=== PATIENT | female | born 1990 | race Hispanic/Latino ===

== ENCOUNTER 2017-12-08 09:59 | Emergency (ER) | payer OTHER ==
[~2017-12-08] VITALS: Ht 152.4 cm; Wt 45.0 kg
[~2017-12-08 09:59] MED LIST: AUGMENTIN875 MG OR; IBUPROFEN600 MG PO; KEFLEX500 MG PO; LORTAB 5 OR; NO HOME MEDS; NORCO1 TA2 PO; PERI-COLACE1 TAB PO; PRENATA3 PO; PROCARDIA10 MG PO
[2017-12-08 10:46] LABS: HEMATOCRIT 36.4 % (37.0-47.0); HEMOGLOBIN 13.1 g/dl (12.0-16.0); IMMATURE GRANULOCYTES 0.3 % (0.0-1.0); MEAN CELL VOLUME 87.5 fL CALC (80.0-100.0); MEAN CORPUSCULAR HGB 31.5 pG CALC (26.0-32.0); NEUT# 7.15 thou/uL (2.00-7.15); RED BLOOD COUNT 4.16 mill/uL (4.20-5.60); RED CELL DISTRI WIDTH 11.9 % (11.5-15.5)
[2017-12-08 10:50] LABS: URINE BILIRUBIN - DIPSTICK NEGATIVE (NEGATIVE); URINE BLOOD DIPSTICK LARGE (NEGATIVE); URINE CLARITY CLOUDY; URINE COLOR YELLOW; URINE GLUCOSE - DIPSTICK NEGATIVE (NEGATIVE); URINE KETONE NEGATIVE (NEGATIVE); URINE LEUK ESTERASE NEGATIVE (NEGATIVE); URINE NITRITE - DIPSTICK POSITIVE (Negative); URINE PH 5.5 (4.5-8.0); URINE PROTEIN - DIPSTICK TRACE mg/dL (NEG-TRACE); URINE SPECIFIC GRAVITY >=1.030; URINE UROBILINOGEN - DIPSTICK 0.2 E.U./dL (0.2)
[2017-12-08 10:51] LABS: URINE BACTERIA MANY hpf; URINE EPITHELIAL CELLS MODERATE EPI/hpf (0-FEW); URINE RBC 25-50 RBC/hpf (0-5)
[2017-12-08 11:07] LABS: AMYLASE 40 u/l (30-110); BILIRUBIN, TOTAL 0.4 mg/dL (0.0-1.4); BUN 13 mg/dL (7-17); BUN/CREATININE RATIO 24 (12-20 (CALC)); CARBON DIOXIDE 21 mmol/l (22-30); CHLORIDE 107 mmol/l (95-108); CREATININE 0.5 mg/dL (0.5-1.0); GFR > 60 ML/MIN (>=60 (CALC)); GFR FOR AFR.AMER. > 60 ML/MIN (>=60 (CALC)); LIPASE 51 u/l (23-300); SGOT/AST 18 u/l (14-36); SGPT/ALT 25 u/l (9-52); TOTAL PROTEIN 7.6 g/dL (6.3-8.2)
[2017-12-08 11:08] LABS: ALBUMIN 4.2 g/dL (3.2-5.0); ALKALINE PHOSPHATASE 74 u/l (38-126); ANION GAP 18 (6-22 (CALC)); POTASSIUM 3.4 mmol/l (3.5-5.1); SODIUM 143 mmol/l (137-146)
[2017-12-08] MEDS ORDERED: TAMSULOSIN0.4 MG PO (13:03)
[2017-12-08] MEDS ORDERED: LORTAB 5/3255 MG PO (13:03)
[2017-12-08 13:20] VITALS: BP 96/50
== END 2017-12-08 13:20 | disposition home or self-care (01) | DRG 694 ==
LOC: ED 09:59
PROVIDERS: Family Medicine
DX: N20.2 Calculus of kidney with calculus of ureter (principal); B96.20 Unspecified Escherichia coli [E. coli] as the cause of diseases classified elsewhere; R10.12 Left upper quadrant pain; R11.2 Nausea with vomiting, unspecified; R50.9 Fever, unspecified; R10.32 Left lower quadrant pain; K59.00 Constipation, unspecified

== ENCOUNTER 2017-12-08 21:46 | Inpatient (IN) | payer OTHER ==
[~2017-12-08] VITALS: Ht 152.4 cm; Wt 55.2 kg
[~2017-12-08 21:46] MED LIST changes: +LORTAB 5/3255 MG PO; +TAMSULOSIN0.4 MG PO
--- NOTE | 2017-12-08 22:21 | NUR ---
DR GARCIA AT BEDSIDE.
[2017-12-08 22:53] LABS: HEMATOCRIT 38.2 % (37.0-47.0); HEMOGLOBIN 13.1 g/dl (12.0-16.0); IMMATURE GRANULOCYTES 0.7 % (0.0-1.0); MEAN CELL VOLUME 90.5 fL CALC (80.0-100.0); MEAN CORPUSCULAR HGB CONC 34.3 g/L CALC (32.0-36.0); NEUT# 19.27 thou/uL (2.00-7.15); RED BLOOD COUNT 4.22 mill/uL (4.20-5.60); RED CELL DISTRI WIDTH 12.3 % (11.5-15.5)
[2017-12-08 23:10] LABS: ALBUMIN 4.5 g/dL (3.2-5.0); ALKALINE PHOSPHATASE 69 u/l (38-126); ANION GAP 24 (6-22 (CALC)); BILIRUBIN, TOTAL 0.8 mg/dL (0.0-1.4); BUN 13 mg/dL (7-17); BUN/CREATININE RATIO 16 (12-20 (CALC)); CARBON DIOXIDE 17 mmol/l (22-30); CHLORIDE 105 mmol/l (95-108); CREATININE 0.8 mg/dL (0.5-1.0); GFR > 60 ML/MIN (>=60 (CALC)); GFR FOR AFR.AMER. > 60 ML/MIN (>=60 (CALC)); POTASSIUM 3.8 mmol/l (3.5-5.1); SGOT/AST 27 u/l (14-36); SGPT/ALT 23 u/l (9-52); SODIUM 142 mmol/l (137-146); TOTAL PROTEIN 8.1 g/dL (6.3-8.2)
--- NOTE | 2017-12-08 23:50 | NUR ---
PT RELATED PAIN IMPROVED AFTER PAIN MEDS. SLIGHT NAUSEA.
[2017-12-09] VITALS (27 sets, daily range): BP systolic 74–115; BP diastolic 46–74
--- NOTE | 2017-12-09 00:30 | NUR ---
PT WITH EYES CLOSED. CALL ROJAS IN REACH.
--- NOTE | 2017-12-09 01:22 | NUR ---
PT RELATED SHE IS UNABLE TO PROVIDE URINE.
--- NOTE | 2017-12-09 01:40 | NUR ---
VERBAL TO STRAIGHT CATH FOR URINE BY DR GARCIA.. ACCOMP BY CLARISSA BRIGHT.
[2017-12-09 01:50] LABS: URINE BILIRUBIN - DIPSTICK NEGATIVE (NEGATIVE); URINE BLOOD DIPSTICK NEGATIVE (NEGATIVE); URINE COLOR YELLOW; URINE GLUCOSE - DIPSTICK NEGATIVE (NEGATIVE); URINE KETONE NEGATIVE (NEGATIVE); URINE LEUK ESTERASE NEGATIVE (NEGATIVE); URINE NITRITE - DIPSTICK NEGATIVE (Negative); URINE PH 5.5 (4.5-8.0); URINE PROTEIN - DIPSTICK NEGATIVE (NEG-TRACE); URINE UROBILINOGEN - DIPSTICK 0.2 E.U./dL (0.2)
[2017-12-09 01:51] LABS: URINE CLARITY CLEAR
--- NOTE | 2017-12-09 02:05 | NUR ---
PT C/O 03/23 PAIN. FOUND PT UNDER BLANKET WITH ROOM TEMP ON HI. REMOVED BLANKET, PT WITH SHEET ON, PROVIDED EDUCATION.
--- NOTE | 2017-12-09 02:21 | NUR ---
PT TO CT.
--- NOTE | 2017-12-09 02:34 | NUR ---
PT RETURNED FROM CT.
--- NOTE | 2017-12-09 02:45 | NUR ---
PT PLACED IN TRENDELENBERG FOR B/P.
--- NOTE | 2017-12-09 03:41 | NUR ---
PT REQUESTED BED TOBAR.
--- NOTE | 2017-12-09 03:48 | NUR ---
PT UNABLE TO VOID ON BEDPAN.
--- NOTE | 2017-12-09 03:49 | NUR ---
PT STATED SHE LAST ATE AT 0500 ON THURSDAY, LAST PO SIP OF WATER WITH TYLENOL AT 2300 12/08/17
--- NOTE | 2017-12-09 04:16 | NUR ---
PT TO OR.
--- NOTE | 2017-12-09 04:55 | NUR ---
REPORT TO [facility] ICU
--- NOTE | 2017-12-09 06:30 | NUR ---
PT TO ICU BED 2 VIA STRETCHER FROM OR. PT IS [place] SPEAKING ONLY. PT ORIENTED TO ROOM AND CALL LIGHT SYSTEM. WILL CONTINUE TO MONITOR
--- NOTE | 2017-12-09 07:12 | NUR ---
female pt resting in bed with eyes closed; arousable to light tactile stimulation/loud speech; assessment completed at this time; pt speaks some [place]; alert and oriented but drowsy; admits to pain to luq rating 6/10; no n/v noted; will medicate; resp even and unlabored; lungs clear; skin color wnl; 8L oxymask intact; o2 sat 91%; hr reg; strong pulses; no edema noted; st on monitor; abd soft with bs present; no bm noted per creative services writer; diana to gravity draining clear dk yellow urine; #20 rw patent with ns bolus infusing; #22 in lh saline locked; no redness or edema noted at site; pt noted hypotensive/ fluid bolus infusing; plan of care/ am meds explained; call light within reach; will continue to monitor
--- NOTE | 2017-12-09 08:01 | NUR ---
awake; visitor at bedside; no distress noted; st on monitor; o2 mask intact; remains hypotensive; call light within reach; will continue to monitor
--- NOTE | 2017-12-09 09:35 | NUR ---
Dr Escamilla at bedside to assess pt and discuss plan of care
--- NOTE | 2017-12-09 10:14 | NUR ---
pt resting with eyes closed; easily aroused; offers no complaints; diana to gravity; sr on monitor; iv patent; fluids infusing without complication; no redness or edema noted at site; o2 8L via face mask; call light within reach; will continue to monitor
--- NOTE | 2017-12-09 12:05 | NUR ---
awake; assisted to bsc as per request; lg loose brown bm noted; pericare per pt; diana to gravity; iv intact and patent; no redness or edema noted at site; o2 at 8L via facemask; st on monitor; call light within reach; will continue to monitor
--- NOTE | 2017-12-09 14:15 | NUR ---
awake in bed; offers complaints of pain to luq/abd; medicated as per orders; iv patent; no redness or edema noted at site; sr on monitor; diana to gravity; call light within reach; will continue to monitor
--- NOTE | 2017-12-09 16:18 | NUR ---
awake conversing on cell phone; no distress noted; resp even and unlabored; o2 per facemask; iv intact and patent; fluids infusing without complication; no redness or edema noted at site; sr on monitor; call light within reach; will continue to monitor
--- NOTE | 2017-12-09 18:01 | NUR ---
awake in bed; no distress noted; pt offers no complaints; iv patent; no redness or edema noted at site; sr on monitor; family at bedside; diana to gravity; o2 per facemask; bed in lowest position; call light within reach;
--- NOTE | 2017-12-09 19:00 | NUR ---
PT SITING UP IN BED WATCHING TV. PT IS ALERT AND ORIENTED X3. PERRLA. RESP ARE VERY SHALLOW AND FAST. INSTRUCTIONS GIVEN FOR NICE SLOW DEEP BREATHING. CONSULTED WITH RT. RT GAVE DEEP BREATHING TECHNIQUES AND PLACED PT ON O2 4L NC HI FGLOW. PT O2 SAT REMAINS ABOVE 94%. LUNGS ARE CLEAR THROUGHOUT. HR REGULAR. SR ON MONITOR. PULSES PALPABLE THROUGHOUT. NO EDEMA NOTED. BS ACTIVE. DIAMOND DRAINING ORANGE COLORED URINE. PT IS ON PYRIDIUM. PT ASSISTED TO BATHROOM FOR BM. AND THEN WAS ASSISTED BACK TO BED. SCDS IN PLACE. #20 RW. NS @200CC/HR. #22 LH SALINE LOCKED. NO REDNESS OR EDEMA NOTED AT EITHER SITE. CALL LIGHT WITHIN REACH WILL CONTINUE TO MONITOR
--- NOTE | 2017-12-09 21:00 | NUR ---
PT ASSISTED TOBATHROOM FOR BM AND ASSISTED BACK TOP BED
--- NOTE | 2017-12-09 22:00 | NUR ---
PT ASSISTED TO BATHROOM FOR BM AND ASSISTED BACK TO BED.
--- NOTE | 2017-12-09 23:00 | NUR ---
PT ASSISTED TO BATHROOM FOR BM ANDC ASSISTED BACK TO BED. WILL CONTINUE TO MONITOR
[2017-12-10] VITALS (14 sets, daily range): BP systolic 100–119; BP diastolic 56–86
--- NOTE | 2017-12-10 00:10 | NUR ---
PT STATES THAT SHE IS SHORT OF BREATH. PT REMAINS ON O2 4L HI FLOW NASAL CANNULA. NOTIFIED RESPIRATORY FOR EVALUATION. WADDNER ALSO HERE TO TRANSLATE AND REASSURE PATIENT
--- NOTE | 2017-12-10 00:16 | NUR ---
PT DEMANDED TO BE PLACED BY ON O2 MASK STATING THAT THE NASAL CANNULA WAS STOPPING HER FROM BREATHING. RT PLACED PT BACK ON MASK.
--- NOTE | 2017-12-10 00:31 | NUR ---
ASSISTED PT TO BSC FOR BM.
--- NOTE | 2017-12-10 00:38 | NUR ---
PT ASSISTED BACK TO BED. SMALL BM NOTED.
--- NOTE | 2017-12-10 02:00 | NUR ---
PT RESTING IN BED WITH EYES CLOSED. RESP ARE EVEN AND UNLABORED ON MASK AT 8L. NO DISTRESS NOTED. WILL CONTINUE TO AUSTINIR
--- NOTE | 2017-12-10 03:20 | NUR ---
ASSISTED PT TO BSC FOR BM.
--- NOTE | 2017-12-10 03:34 | NUR ---
PT AWSSISTED BACK TO BED. SCANT BM NOTED
--- NOTE | 2017-12-10 04:00 | NUR ---
PT RESTING IN BED WITH EYES CLOSED. RESP ARE EVEN AND UNLABORED. NO DISTRESS NOTED. REMAINS ON O2 6L. WILL CONTINUE TO MONITOR
--- NOTE | 2017-12-10 04:32 | NUR ---
LAB INTO DRAW AM LABS
[2017-12-10 05:36] LABS: MEAN CELL VOLUME 91.9 fL CALC (80.0-100.0); MEAN CORPUSCULAR HGB 31.9 pG CALC (26.0-32.0); MEAN CORPUSCULAR HGB CONC 34.7 g/L CALC (32.0-36.0); RED BLOOD COUNT 3.45 mill/uL (4.20-5.60); RED CELL DISTRI WIDTH 13.5 % (11.5-15.5)
[2017-12-10 05:44] LABS: ANION GAP 15 (6-22 (CALC)); BUN 9 mg/dL (7-17); BUN/CREATININE RATIO 13 (12-20 (CALC)); CARBON DIOXIDE 18 mmol/l (22-30); CHLORIDE 117 mmol/l (95-108); CREATININE 0.6 mg/dL (0.5-1.0); GFR > 60 ML/MIN (>=60 (CALC)); GFR FOR AFR.AMER. > 60 ML/MIN (>=60 (CALC)); POTASSIUM 3.1 mmol/l (3.5-5.1); SODIUM 147 mmol/l (137-146)
[2017-12-10 05:56] LABS: HEMATOCRIT 31.7 % (37.0-47.0)
--- NOTE | 2017-12-10 06:05 | NUR ---
ASSISTED PT TO BSC FOR BM
--- NOTE | 2017-12-10 06:18 | NUR ---
ASSISTED PT BACK TO BED. SMALL BM NOTED. WILL CONTINUE TO MONITOR
--- NOTE | 2017-12-10 07:10 | NUR ---
pt noted sleeping; no distress noted; easily arousable to speech; assessment completed at this time; pt alert and oriented; denies pain; no n/v noted; resp even and unlabored while asleep; when awakened, pt noted with fast shallow breathing; deep breathing techniques explained; lungs clear; skin color wnl; o2 per facemask at 8L/o2 sat 100%; pt converted to 4l hi lex NC; o2 sat remains at 97%; dry upper leather sorter cough noted; IS to be provided; hr reg; strong pulses; no edema noted; bilat scd's intact; abd soft with bs present; no bm noted per board writer; diana to gravity draining clear yellow urine; cath wong intact; #22 flushed and patent to lh; #20 in rw patent with ivf infusing without complication; no redness or edema noted at site; plan of care/am meds explained; call light within reach; will continue to monitor
--- NOTE | 2017-12-10 08:02 | NUR ---
awake in bed; offers no complaints; increase activity encouraged; scd's removed and archana hose placed; iv patent; am meds given; o2 per nc at 4L hi lex; o2 sat remain in upper 90S; sr on monitor; call light within reach; will continue to monitor
--- NOTE | 2017-12-10 09:11 | NUR ---
BLOOD CULTURE POSITIVE BLOOD CULTURE CALLED TO AT 0745AM GRAM (-) ALICIA PATIENT IS ON ZOSYN
--- NOTE | 2017-12-10 10:00 | NUR ---
up to recliner; no distress noted; o2 per nc; diana to gravity; visitor at bedside; iv patent; pt offers no complaints; will continue to monitor
--- NOTE | 2017-12-10 10:58 | NUR ---
pt awake in bed; visitor at bedside; registration called unit with concerns for pt/language barrier; this verse writer and Georgie MS UC in to assess pt; pt noted with complaints of lower abd pain; pain meds explained; diana to gravity with no kinks noted; abd appears slightly distended; pt and visitor updated in plan of care/ meds; call light within reach;
--- NOTE | 2017-12-10 11:30 | NUR ---
Dr Escamilla at bedside to assess and discuss plan of care; Ayden Maldonado at bedside to interpret; pt with complaints of abd pain moreso to ruq/rlq; abd noted slightly distended; bladder scanned for 261ml; no obstruction noted to catheter; diana care at this time; iv patent; no redness or edema noted at site; sr on monitor; o2 per nc at 2L; CT to bed ordered; all questions/ concerns answered with hadoop consultant; MD aware of bladder scan results; will continue to monitor
--- NOTE | 2017-12-10 12:03 | NUR ---
pt awake in bed; vistor at bedside; tearful; admits to pain; iv patent; no redness or edema noted at site; gastrographin administered in apple juice as per protocol; diana to gravity; o2 per nc/ titrated to 2L; o2 sat 98%; sr on monitor; call light within reach; will continue to monitor
--- NOTE | 2017-12-10 14:12 | NUR ---
awake; visitor at bedside; pt up to recliner; no distress noted; admits to pain relief 10/24; diana to gravity; iv patent; sr on monitor; o2 per nc at 2l; call light within reach; will continue to monitor
--- NOTE | 2017-12-10 15:00 | NUR ---
pt transported to ct scan via in stable condition; speech writer remains with pt [id number]- returned to unit in stable condition; linen changed; bath offered; will continue to monitor
--- NOTE | 2017-12-10 15:59 | NUR ---
awake in recliner; no distress noted; pt offers no complaints; denies pain; sr on monitor; ra; o2 sat 96%; no resp distress noted; diana to gravity; call light within reach; will continue to monitor
--- NOTE | 2017-12-10 17:51 | NUR ---
resting in bed with eyes closed; no distress noted; easily arousable; denies pain/needs; iv patent; no redness or edema noted at site; sr on monitor; diana to gravity; o2 sat 92% RA; deep breathing, coughing, IS encouraged; bed in lowest position; call light within reach
--- NOTE | 2017-12-10 18:18 | NUR ---
assist to bsc; sob with exertion noted; o2 reapplied at 2L for o2 sat of 88%
--- NOTE | 2017-12-10 18:50 | NUR ---
REPORT FROM Anila DENISE RN. ASSUMED PT. CARE.
--- NOTE | 2017-12-10 19:07 | NUR ---
DIAMOND CATHETER REMOVED BY Anila DENISE RN AT THIS TIME. APPROX 500 CC URINE EMPTIED AT THIS TIME. LIQUID BROWN BM ALSO NOTED.
--- NOTE | 2017-12-10 20:25 | NUR ---
PT. EDUCATED ON PENDING BLOOD CULTURE AND ALL QUESTIONS ANSWERED. ASSISTED BY Matilde MERCER WITH INTERPRETATION. PT. DENIES COMPLAINTS OF PAIN AT THIS TIME. REPOSITIONED FOR COMFORT AND WARM BLANKET PROVIDED.
--- NOTE | 2017-12-10 20:55 | NUR ---
PT. ASSISTED TO BEDSIDE COMMODE FOR BM. WILL SEND STOOL FOR CULTURE ANALYSIS.
--- NOTE | 2017-12-10 22:17 | NUR ---
PT. ASSISTED TO BEDSIDE COMMODE. URINE AND STOOL OUT AT THIS TIME. CALL LIGHT REMAINS WITHIN REACH. WILL CONTINUE TO MONITOR. CONTINUES TO DENY PAIN.
--- NOTE | 2017-12-10 23:45 | NUR ---
PT. TEMP NOW 99.1. IV FLUIDS CONTINUE TO INFUSE AT 20CC/HR. ASSISTED TO BEDSIDE COMMODE. PT. TOLERATED WELL. HR AND BP STABLE. SPO2 STABLE ON 2L NC. CALL LIGHT REMAINS WITHIN REACH.
[2017-12-11] VITALS (12 sets, daily range): BP systolic 97–133; BP diastolic 55–79
--- NOTE | 2017-12-11 01:26 | NUR ---
PT. RESTING IN BED WITH EYES CLOSED. RESPS REMAIN EVEN AND UNLABORED. SKIN WARM AND DRY. CALL LIGHT REMAINS WITHIN REACH. IV FLUIDS CONTINUE TO INFUSE ORDERED.
--- NOTE | 2017-12-11 02:32 | NUR ---
PT. AWAKE, ALERT, ORIENTED X 3. SKIN WARM AND DRY. ELIE. AMBULATORY FROM BED TO BEDSIDE COMMODE. RESPS REMAINS EVEN AND UNLABORED. VSS. DENIES PAIN. CALL LIGHT PLACED BACK WITHIN REACH. IV FLUIDS CONTINUE TO INFUSE ORDERED.
[2017-12-11 03:17] LABS: C. DIFFICILE TOXIN A&B NEGATIVE (NEGATIVE)
--- NOTE | 2017-12-11 04:05 | NUR ---
LAB AT BEDSIDE AT THIS TIME TO DRAW PT. PT. REMAINS EASILY AROUSABLE TO LIGHT VERBAL STIMULI. REMAINS AFEBRILE. IV FLUIDS CONTINUE TO INFUSE WITHOUT SX OF INFILTRATION OR EXTRAVASATION.
--- NOTE | 2017-12-11 04:28 | NUR ---
PT. ASSISTED TO BSC. SMALL LOOSE/LIQUID BM NOTED AT THIS TIME. APPROX 150 CC CLEAR URINE OUT AT THIS TIME. WILL CONTINUE TO MONITOR. PT. MEDICATED FOR REPORTED 5/10 PAIN. WILL CONTINUE TO MONITOR.
--- NOTE | 2017-12-11 05:56 | NUR ---
PT. RESTING IN BED WITH EYES CLOSED. VOICES NO COMPLAINTS OR NEEDS. IV ZOSYN INFUSING WITHOUT SX OF INFILTRATION OR EXTRAVASATION. MEDICATED PER PHYSICIAN ORDERS. VSS. CALL LIGHT REMAINS WITHIN REACH. WILL CONTINUE TO MONITOR.
--- NOTE | 2017-12-11 07:20 | NUR ---
PT RESTING IN BED, ALERT AND OREINTED, AFEBRILE, TEMP 98.4 TYMPANICALLY, BP STABLE AND TELE READING SR RATE IN THE 70'S, AM ASSESSMENT COMPLETED SEE INTERVENTIONS, SKIN WARM AD N DRY SOME GENERALIZED EDEMA NOTED TO EXTREMETIES ESPECIALLY HANDS, IV ACCESS IN PLACE IN RW WITH IVF INFUSING PRESCRIBED, BILATERAL MARCIAL HOSE IN PLACE, OFFERS NO COMPLAINTS OF PAIN AT THIS TIME, SKIN WARM DRY AND INTACT, LUNGS CLEAR; DIMINSHED IN BASES, O2 ON AT 2L VIA NC, NO SOB OR DISTRESS NOTED, ABD SOFT AND BS ACTIVE, PT HAS HAD LOOSE STOOLS PER REPORT, NONE NOTED BY THIS NURSE, CALL ROJAS WITHIN REACH, SAFETY MEASURES REINFORCED, WILL CONTINUE TO MONITOR.
[2017-12-11 08:19] LABS: HEMATOCRIT 29.1 % (37.0-47.0); HEMOGLOBIN 10.3 g/dl (12.0-16.0); MEAN CELL VOLUME 88.4 fL CALC (80.0-100.0); MEAN CORPUSCULAR HGB 31.3 pG CALC (26.0-32.0); MEAN CORPUSCULAR HGB CONC 35.4 g/L CALC (32.0-36.0); RED BLOOD COUNT 3.29 mill/uL (4.20-5.60); RED CELL DISTRI WIDTH 13.2 % (11.5-15.5)
[2017-12-11 08:28] LABS: ANION GAP 12 (6-22 (CALC)); BUN 7 mg/dL (7-17); BUN/CREATININE RATIO 14 (12-20 (CALC)); CARBON DIOXIDE 21 mmol/l (22-30); CHLORIDE 113 mmol/l (95-108); CREATININE 0.5 mg/dL (0.5-1.0); GFR > 60 ML/MIN (>=60 (CALC)); GFR FOR AFR.AMER. > 60 ML/MIN (>=60 (CALC)); MAGNESIUM 1.5 mg/dL (1.6-2.3); POTASSIUM 2.9 mmol/l (3.5-5.1); SODIUM 143 mmol/l (137-146)
--- NOTE | 2017-12-11 08:40 | NUR ---
TOLERATED AM MEAL W/O INCIDENT, AND TAKES PO MEDICATIONS WELL, VISITOR AT BEDSIDE, INQUIRING (PER PT REQUEST) ABOUT POTENTIAL DISCHARGE, EDUCATED REGARDING D/C PROCESS, VERBALIZES UNDERSTANDING, CALL ROJAS WITH IN REACH, IVF CONTINUE AT PRESCRIBED RATE, WILL CONTINUE TO MONITOR.
--- NOTE | 2017-12-11 09:47 | NUR ---
PT RESTING, DOZES INTERMITTENLY, OFFERS NO NEW COMPLAINTS, VISITOR REMAINS AT BEDSIDE
--- NOTE | 2017-12-11 10:03 | NUR ---
O2 OFF AT THIS TIME, WILL MONITOR TOLERANCE, VISITORS REMAIN AT BEDSIDE, WILL CONTINUE TO MONITOR.
--- NOTE | 2017-12-11 10:41 | NUR ---
PT OOB TO BSC, CONTINENTN OF URINE AND STOOL, LOOSE STOOLS CONTINUE, PT PROVIDES OWN CHELSEY CARE; INTO SEE PATIENT; PLAN OF CARE DISCUSSED INCLUDING MAG AND POTASSIUM REPLACEMENT IV WITH REPEAT CHEM LATER TODAY, PT ALSO AWARE OF NEED FOR ORTHOSTATIC BP'S, WILL CONTINUE TO MONITOR., VISITORS REMAIN AT BEDSIDE
--- NOTE | 2017-12-11 10:56 | NUR ---
TO RADIOLOGY VIA WHEELCHAIR FOR CHEST XRAY ORDERED
--- NOTE | 2017-12-11 11:35 | NUR ---
SET UP ASSIST PROVIDED FOR AFTERNOON MEAL, JES WARE REACH, IVF;POTASSIUM;MAGNESIUM, INFUSING W/O INCIDENT.
--- NOTE | 2017-12-11 11:47 | NUR ---
ORTHOSTATIC BP COMPLETED LYING 104/65 HR 86 [id number] HR 82 [id number] HR 88 OOB TO BSC, CALL ROJAS WITHIN REACH
--- NOTE | 2017-12-11 12:13 | NUR ---
MEDICATED FOR COMPLAINTS OF NAUSEA, NO EMESIS, SITTING UP ON EDGE OF BED, CALL ROJAS WITHIN REACH
--- NOTE | 2017-12-11 12:43 | NUR ---
PT TEMP 99.6 WILL MEDICATE, PT OOB AND AMBULATED WITH PORTABLE O2 AT 2L, TOLERATED WITH SOME MILD DYSPNEA, AND BELCHING NOTED DURING AMBULATION, AMBULATED APPROX 300 FEET, INCENTIVE SPIROMETER USAGE WINTESSED ONCE BACK SITTING ON EDGE OF BED, WITH POOR EFFORT NOTED 500ML MAX INSPIRATORY VOLUME NOTED WITH 10 REPS COMPLETED, PT EDUCATED TO INCREASE USAGE FREQUENCY AND ATTEMPT TO IMPROVE INSPIRATORY VOLUME, WILL REINFORCE INFORMATION PRN, CALL ROJAS WITHIN REACH
--- NOTE | 2017-12-11 13:45 | NUR ---
pt dozing, o2 remains on 2L via NC, call goins within reach, IVF continue at KVO, offers no new complaints,
--- NOTE | 2017-12-11 15:00 | NUR ---
medictaed with TOradol earlier as ordered, temp was 99.5 post tylenol 100.5 medicated with Toradol as ordered, OOB to BSC at this time with min assist, Potassium infusion complete and will re eval lab wt 1600per verbal order
--- NOTE | 2017-12-11 15:49 | NUR ---
PHLEBOTOMY AT BEDSIDE FOR LAB WORK ORDERED, PT TOLERATED W/O INCIDENT, CALL ROJAS WITHIN REACH, WILL CONTINUE TO MONITOR.
[2017-12-11 16:20] LABS: ANION GAP 14 (6-22 (CALC)); BUN 6 mg/dL (7-17); BUN/CREATININE RATIO 14 (12-20 (CALC)); CARBON DIOXIDE 21 mmol/l (22-30); CHLORIDE 110 mmol/l (95-108); CREATININE 0.5 mg/dL (0.5-1.0); GFR > 60 ML/MIN (>=60 (CALC)); GFR FOR AFR.AMER. > 60 ML/MIN (>=60 (CALC)); POTASSIUM 2.9 mmol/l (3.5-5.1); SODIUM 142 mmol/l (137-146)
[2017-12-11 16:26] LABS: MAGNESIUM 1.9 mg/dL (1.6-2.3)
--- NOTE | 2017-12-11 17:13 | NUR ---
PT OOB TO BSC, CONTINENT OF MODERATE AMOUNT URINE AND SMALL BM, PROVIEDS OWN CHELSEY CARE AND BACK TO BED, SITTING UP ON EDGE OF BED AWAITING PM MEAL, TEMP 983.5 TYMPANICALLY, WEAK HAND BRIM IRONER COUGH NOTED, CALL ROJAS WITHIN REACH.
--- NOTE | 2017-12-11 17:22 | NUR ---
AWARE OF POTASSIUM LEVEL NEW ORDERS REC'D.
--- NOTE | 2017-12-11 18:12 | NUR ---
PT TOOK PO POTASSIUM W/O INCIDENT, IV ABT INFUSING, WILL START K RIDER WHEN ABT COMPLETE, CALL ROJAS WITHIN REACH
--- NOTE | 2017-12-11 18:45 | NUR ---
REPORT FROM DEANGELO CANO. ASSUMED PT. CARE.
--- NOTE | 2017-12-11 19:30 | NUR ---
PT. FOUND AWAKE, ALERT, ORIENTED X 3. PT. UPDATED ON PLAN OF CARE AND NEW DIAGNOSES OF BLOOD STREAM INFECTION AND PNEUMONIA. EXTENSIVE EDUCATION AND INSTRUCTION ON NEED FOR DEEP BREATHING EXERCISES PERFORMED BY Matilde MERCER, RETURN INSTRUCTION DEMONSTRATED. RESPS REMAIN EVEN, SHALLOW, UNLABORED. SPO2 IS STABLE AT 99-100% ON 2L VIA NC. DISTIL PULSES INTACT. TEMP IS 100.1. PT. INFORMED WHEN TEMP IS DOWN, A WARM BLANKET WILL BE PROVIDED. ALL QUESTIONS ANSWERED IN [place] BY Matilde MERCER LPN AND THIS RN AT THIS TIME. MARCIAL HOSE REMAIN IN PLACE. DENIES OTHER COMPLAINTS AT THIS TIME. CALL LIGHT REMAINS WITHIN REACH. WILL CONTINUE TO MONITOR.
--- NOTE | 2017-12-11 19:45 | NUR ---
PT. CALLED TO NURSING STATION STATING POTASSIUM INFUSION IS BURNING. DRIP DECREASED FROM 100CC/HR TO 50 CC/HR AND PT. REPORTS IMPROVEMENT IN THE DISCOMFORT. WILL CONTINUE TO ASSESS FOR DISCOMFORT/SWELLING/INFILTRATION. NO SX OF INFILTRATION OR EXTRAVASATION AT THIS TIME. CALL LIGHT REMAINS WITHIN REACH. WILL CONTINUE TO MONITOR.
--- NOTE | 2017-12-11 20:19 | NUR ---
PT. AMBUALTORY WITH STEADY GAIT FROM BED TO BEDSIDE COMMODE AT THIS TIME. NO DISTRESS. NO ASSISTANCE NEEDED. WILL CONTINUE TO MONITOR.
[2017-12-11 21:54] LABS: INFLUENZA B NONE DETECTED (NONE DETECT)
--- NOTE | 2017-12-11 22:15 | NUR ---
PT. RESTING IN BED IN NO DISTRESS. RESPS REMAIN EVEN SHALLOW, AND UNLABORED. DENIES COMPLAINTS OF PAIN OR NEED AT THIS TIME. CALL LIGHT REMAINS WITHIN REACH. VSS.
[2017-12-11 22:20] LABS: INFLUENZA A NONE DETECTED (NONE DETECT)
[2017-12-12] VITALS (12 sets, daily range): BP systolic 109–146; BP diastolic 60–91
--- NOTE | 2017-12-12 00:47 | NUR ---
PT. REMAINS EASILY AROUSABLE. CALL LIGHT REMAINS WITHIN REACH. AFEBRILE AT THIS TIME. 98.8. DENIES COMPLAINTS OF PAIN OR NEED. RESPS REMAINS SHALLOW, EVEN AND UNLABORED. IV FLUIDS CONTINUE TO INFUSING WITHOUT SX OF INFILTRATION OR EXTRAVASATION.
--- NOTE | 2017-12-12 02:40 | NUR ---
PT. CONTINUES TO REST WELL WITH EYES CLOSED. DENIES COMPLAINTS OF PAIN OR NEED. RESPS REMAIN EVEN AND SHALLOW. IV FLUIDS CONTINUE TO INFUSE ORDERED. VSS. CALL LIGHT REMAINS WITHIN REACH.
--- NOTE | 2017-12-12 04:00 | NUR ---
LAB AT BEDSIDE AT THIS TIME. DENIES COMPLAINTS OF PAIN OR NEED. REMAINS AWAKE, ALERT, ORIENTED X 3. SKIN WARM AND DRY.
--- NOTE | 2017-12-12 04:35 | NUR ---
PT. CONTINUES TO REST WITH EYES CLOSED AND IN NO DISTRESS. RESPS REMAIN E EVEN, SHALLOW, UNLABORED. VSS. CALL LIGHT REMAINS WITHIN REACH. PT. DENIES COMPLAINTS OF PAIN OR NEED. REMAINS AFEBRILE.
[2017-12-12 05:24] LABS: ANION GAP 15 (6-22 (CALC)); BUN 6 mg/dL (7-17); BUN/CREATININE RATIO 13 (12-20 (CALC)); CARBON DIOXIDE 22 mmol/l (22-30); CHLORIDE 112 mmol/l (95-108); CREATININE 0.5 mg/dL (0.5-1.0); GFR > 60 ML/MIN (>=60 (CALC)); GFR FOR AFR.AMER. > 60 ML/MIN (>=60 (CALC)); SODIUM 145 mmol/l (137-146)
[2017-12-12 05:25] LABS: POTASSIUM 3.5 mmol/l (3.5-5.1)
--- NOTE | 2017-12-12 06:04 | NUR ---
PT. VOIDED. BSC EMPTIED OF 1800 CC URINE AT THIS TIME. ONE MEDIUM FORMED STOOL NOTED. PT. STATES WITH 4/1O FLANK PAIN AT THIS TIME. IV ZOSYN INFUSTIN WITHOUT SX OF INFILTRATION OR EXTRAVASATION. WILL CONTINUE TO MONITOR.
--- NOTE | 2017-12-12 07:25 | NUR ---
STABLE AND TELE READING SR RATE IN THE 70'S, AM ASSESSMENT COMPLETED SEE INTERVENTIONS, SKIN WARM AND DRY; TRACE EDEMA NOTED TO BILATERAL UPPER EXTREMETIES ESPECIALLY HANDS, IV ACCESS IN PLACE IN RW WITH IVF INFUSING PRESCRIBED, SALINE LOCK IN TACT IN LEFT HAND, BILATERAL MARCIAL HOSE IN PLACE, OFFERS NO COMPLAINTS OF PAIN AT THIS TIME, SKIN WARM DRY AND INTACT, LUNGS CLEAR; DIMINSHED IN BASES, O2 ON AT 2L VIA NC, NO SOB OR DISTRESS NOTED, INCENTIVE SPIROMETER USAGE ENCOURAGED WITH POOR EFFORT NOTED, PT INSPIRATORY VOLUME MAX 500 ML, ABD SOFT; BS ACTIVE, SAFETY MEASURES REINFORCED, OOB TO BSC WITH STAND BY ASSIST, PT STARTED MENSES, PADS PROVIDED, COMFORT MEASURES PROVIDED, CALL ROJAS WITHIN REACH
--- NOTE | 2017-12-12 08:10 | NUR ---
SET UP ASSIST PROVIDED FOR AM MEAL, AMBULATING IN ROOMW ITH STEADY GAIT, BRUSHED HER TEETH AND WASHED HANDS, SITTING UP ON EDGE OF BED, CALL ROJAS WITHIN REACH,.WILL CONTINUE TO MONITOR
--- NOTE | 2017-12-12 08:33 | NUR ---
PT RESTING IN BED, OFFERS NO NEW COMPLAINTS, IVF CONTINUE AT KVO, ENCOURAGED PT TO COUGH AND DEEP BREATH, CALL ROJAS WITHIN REACH
--- NOTE | 2017-12-12 10:00 | NUR ---
PT RESTING IN BED, OOB TO BEDSIDE COMMODE INDEPENDENTLY WITH STEAD GAIT, REMAINS AFEBRILE, IVF FINSUING AT KVO, CALL ROJAS WITHIN REACH
--- NOTE | 2017-12-12 11:44 | NUR ---
SET UP ASSIST PROVIDED FOR AFTERNOON MEAL, IVF CONTINUE WITHOUT INCIDENT, REMAINS AFEBRILE. O2 AT 2L VIA NASAL CANNULA, PT REMOVES PRN TO MOVE ABOUT IN ROOM, CALL ROJAS WITHIN [facility], WILL CONTINUE TO MONITOR
--- NOTE | 2017-12-12 12:00 | NUR ---
VISITORS AT BEDSIDE, CALL ROJAS WITHIN REACH.
--- NOTE | 2017-12-12 13:15 | NUR ---
PT TO MED SURG VIA WHEELCHAIR FOR SHOWER, PT TOLERATED WELL AND STATES "IT FEELS GOOD" BACK TO BED ALL MONITORING EQUIPMENT REAPPLIED, CALL ROJAS WITHIN REACH, WILL LEAVE O2 OFF (PT DOES NOT WEAR AT HOME AND MONITOR TOLERANCE, WILL CONTINUE TO MONITOR.
--- NOTE | 2017-12-12 15:49 | NUR ---
PT RESTING, AMBUALTES IN ROOM WITH STEADY GAIT, CALL ROJAS WITHIN REACH
--- NOTE | 2017-12-12 16:23 | NUR ---
TEMP 101.0 TYMPANICALLY, MEDICATED ORDERED, WILL CONTINUE TO MONITOR, OFFERS NO NEW COMPLAINTS, O2 PLACED BACK ON PATIENT RELATED TO PT DOZING AND ROOM AIR SATS 89-92, NO S/S OF DISTRESS NOTED
--- NOTE | 2017-12-12 17:20 | NUR ---
REPEAT TEMP 99.9; PT SITTING UP ON EDGE OF BED EATING FRESH FRUIT PROVIDED BY PT SPOUSE, CALL BOB WITHIN REACH.
--- NOTE | 2017-12-12 18:23 | NUR ---
TEMP 98.2, RESTING IN BED, PLAYING ON PERSONAL TELEPHONE, CALL ROJAS WITHIN REACH
--- NOTE | 2017-12-12 18:45 | NUR ---
REPORT FROM Farzad VILLAFANA RN. ASSUMED PT. CARE.
--- NOTE | 2017-12-12 19:50 | NUR ---
PT. FOUND AWAKE, ALERT, ORIENTED X 3. SITTING AT BEDSIDE IN NO DISTRESS. RESPS EVEN AND UNLABORED. SKIN WARM AND DRY. FAMILY AT BEDSIDE AT THIS TIME. PT. SPEAKING IN FULL SENTENCES. NO DISTRESS. DENIES C/O PAIN. VSS. LUNGS CTA, REMAIN SLIGHT DIMINISHED TO BASES BILATERALLY. DRY COUGH NOTED. SPO2 IS 99% ON 2L NC.
--- NOTE | 2017-12-12 20:51 | NUR ---
PT. SITTING IN BED IN NO DISTRESS. AWAKE, ALERT, ORIENTED. READING A BOOK THAT THIS RN PROVIDED TO HER. VSS. REMAINS AFEBRILE AT THIS TIME. DENIES COMPLAINTS OR NEEDS. MEDICATED ORDERED.
--- NOTE | 2017-12-12 21:05 | NUR ---
PT. REMAINS RESTLESS AND ATTEMPTING TO CLIMB OOB. MEDICATED PER PHYSICIAN ORDERS AT THIS TIME. CALL LIGHT AND SITTER REMAIN AT BEDSIDE. WILL CONTINUE TO REORIENT PATIENT NECESSARY. AWAITING RESIDENTIAL PLUMBER TO TAKE PT. FOR CT CHEST/ABD PELVIS.
--- NOTE | 2017-12-12 22:01 | NUR ---
PT. TO BSC AT THIS TIME. REMAINS STABLE. SPO2 DOES DROP AFTER PT. REMOVES O2 NC. PT. DENIES PAIN AT THIS TIME. MEDICATED PER PHYSICIAN ORDERS. REMAINS STABLE.
--- NOTE | 2017-12-12 23:55 | NUR ---
IV ZOSYN INFUSING WITHOUT SX OF INFILTRATION OR EXTRAVASATION. REMAINS AFEBRILE. RESPS REMAIN EVEN AND UNLABORED. SKIN WARM AND DRY. CALL LIGHT REMAINS WITHIN REACH. WILL CONTINUE TO ASSESS.
[2017-12-13] VITALS (8 sets, daily range): BP systolic 121–144; BP diastolic 72–84
--- NOTE | 2017-12-13 01:45 | NUR ---
PT. RESTING IN BED WITH EYES CLOSED. DENIES COMPLAINTS OF PAIN OR NEED. RESPS REMAIN EVEN, SHALLOW, UNLABORED. VSS. IV FLUIDS CONTINUE TO INFUSE PER MD ORDERS. CALL LIGHT REMAINS WITHIN REACH. WILL CONTINUE TO ASSESS.
--- NOTE | 2017-12-13 03:30 | NUR ---
PT. TO BS COMMODE. APPROX 900 CC URINE OUT AT THIS TIME. AMBULATORY WITH STEADY GAIT. DENIES COMPLAINTS OF PAIN OR NEED. CALL LIGHT REMAINS WITHIN REACH. VSS.
--- NOTE | 2017-12-13 04:48 | NUR ---
PT. RESTING IN BED IN NO DISTRESS. CALL LIGHT REMAINS WITHIN REACH. SKIN REMAINS WARM AND DRY. PT. REMAINS AFEBRILE.
--- NOTE | 2017-12-13 06:01 | NUR ---
PT. EASILY AROUSABLE. AWAKE, ALERT, ORIENTED X 3. SKIN WARM AND DRY. ELIE. REMAINS AFEBRILE. CALL LIGHT REMAINS WITHIN REACH. DENIES COMPLAINTS OF PAIN OR NEED AT THIS TIME. WILL CONTINUE TO MONITOR.
[2017-12-13 06:24] LABS: HEMATOCRIT 29.1 % (37.0-47.0); HEMOGLOBIN 10.3 g/dl (12.0-16.0); IMMATURE GRANULOCYTES 0.8 % (0.0-1.0); MEAN CELL VOLUME 88.2 fL CALC (80.0-100.0); MEAN CORPUSCULAR HGB 31.2 pG CALC (26.0-32.0); MEAN CORPUSCULAR HGB CONC 35.4 g/L CALC (32.0-36.0); NEUT# 4.79 thou/uL (2.00-7.15); RED BLOOD COUNT 3.3 mill/uL (4.20-5.60); RED CELL DISTRI WIDTH 12.4 % (11.5-15.5)
[2017-12-13 06:42] LABS: ALKALINE PHOSPHATASE 61 u/l (38-126); ANION GAP 14 (6-22 (CALC)); BILIRUBIN, TOTAL 0.4 mg/dL (0.0-1.4); BUN 8 mg/dL (7-17); BUN/CREATININE RATIO 16 (12-20 (CALC)); CARBON DIOXIDE 25 mmol/l (22-30); CHLORIDE 107 mmol/l (95-108); CREATININE 0.5 mg/dL (0.5-1.0); GFR > 60 ML/MIN (>=60 (CALC)); GFR FOR AFR.AMER. > 60 ML/MIN (>=60 (CALC)); POTASSIUM 3.3 mmol/l (3.5-5.1); SGOT/AST 22 u/l (14-36); SGPT/ALT 32 u/l (9-52); SODIUM 143 mmol/l (137-146)
[2017-12-13 06:49] LABS: ALBUMIN 2.8 g/dL (3.2-5.0); TOTAL PROTEIN 5.6 g/dL (6.3-8.2)
--- NOTE | 2017-12-13 07:25 | NUR ---
STABLE AND TELE READING SR RATE IN THE 70'S, AM ASSESSMENT COMPLETED SEE INTERVENTIONS, SKIN WARM AND DRY; TRACE EDEMA NOTED TO BILATERAL UPPER EXTREMETIES ESPECIALLY HANDS, IV ACCESS IN PLACE IN RW WITH IVF INFUSING PRESCRIBED, SALINE LOCK INTACT IN LEFT HAND, OFFERS NO COMPLAINTS OF PAIN AT THIS TIME, SKIN WARM DRY AND INTACT, LUNGS CLEAR; DIMINSHED IN BASES, O2 ON AT 2L VIA NC, NO SOB OR DISTRESS NOTED, INCENTIVE SPIROMETER USAGE ENCOURAGED CONTINUES TO HAVE SLIGHTLY POOR EFFORT BUT IS IMPROVED OVER PREVIOUS DAYS, PT INSPIRATORY VOLUME MAX 700 ML, ABD SOFT; BS ACTIVE, SAFETY MEASURES REINFORCED, OOB TO BSC WITH STAND BY ASSIST, PT REMAINS MENSES, PADS PROVIDED PRN, COMFORT MEASURES PROVIDED, CALL ROJAS WITHIN REACH
--- NOTE | 2017-12-13 07:51 | NUR ---
SET UP ASSIST PROVIDED FOR AM MEAL, CALL ROJAS WITHIN REACH, WILL CONTINUE TO MONITOR.
--- NOTE | 2017-12-13 09:06 | NUR ---
PT ALERT AND ORIENTED, OFFERS NO NEW COMPLAINTS, BED ASSIGNMENT REC'D FROM MED SURG, CALL ROJAS WITHIN REACH
--- NOTE | 2017-12-13 09:35 | NUR ---
REPORT CALLED TO JOLYNN BRIGHT ON MED SURG. ROOM [id number] ASSIGNED
--- NOTE | 2017-12-13 09:45 | NUR ---
PT TRANSFERRED TO MED SURG, ALL BELONGINGS SENT WITH PATIENT, ACCEPTING NURSE JOLYNN AT BEDSIDE
--- NOTE | 2017-12-13 09:45 | NUR ---
FROM ICU VIA WHEELCHAIR ACCOMPANIED BY JEROME BRIGHT AND DI LOVELL. AMBULATED TO BED WTH STEADY GAIT. RESPS EVEN AND UNLABORED ON ROOM AIR. #20 RW INFUSING WITHOUT DIFFICULTY, SITE APPEARS HEALTHY. DENIES PAIN OR DISCOMFORT. ORIENTED TO ROOM AND CALL SYSTEM. SAFETY PRECAUTIONS REINFORCED. BED IN LOWEST POSITION WITH WHEELS LOCKED. CALL LIGHT WITHIN REACH. ENCOURAGED PT TO CALL FOR ANY NEEDS.
--- NOTE | 2017-12-13 10:24 | NUR ---
MEDICATED WITH ZOFRAN 4MG IVP FOR C/O NAUSEA.
--- NOTE | 2017-12-13 12:30 | NUR ---
SITTING N BEDSIDE CHAIR, FAMILY AT BEDSIDE. RESPS EVEN AND UNLABORED ON ROOM AIR. DENIES PAIN OR DISCOMFORT. CALL LIGHT WITHIN REACH. WILL CONTINUE TO MONITOR.
--- NOTE | 2017-12-13 15:10 | NUR ---
DR MAX AT BEDSIDE, NEW ORDERS RECEIVED.
[2017-12-13] MEDS ORDERED: LEVAQUIN750 M1 PO (15:16)
--- NOTE | 2017-12-13 16:30 | NUR ---
TO RADIOLOGY IN STABLE CONDITION VIA WHEELCHAIR ACCOMAPANIED BY DI LOVELL.
--- NOTE | 2017-12-13 16:45 | NUR ---
FROM RADIOLOGY VIA WHEELCHAIR ACCOMPANIED BY DI LOVELL. AMBULATED TO BED WITH STEADY GAIT. VOICES NO NEEDS AT THIS TIME. CALL LIGHT WITHIN REACH.
--- NOTE | 2017-12-13 17:23 | NUR ---
IV site discontinued, cath intact. No edema , no redness, voices no discomfort.
--- NOTE | 2017-12-13 18:05 | NUR ---
Discharge instructions given. Patient verbalizes understanding of same. Discharged in stable condition via Wheelchair to Home with family. All belongings sent with pt.
== END 2017-12-13 18:10 | disposition home or self-care (01) | DRG 871 ==
LOC: ED 21:46 → ED-I 12-09 03:10 → ED 12-09 03:48 → ICU 12-09 03:49 → MS2 12-13 09:45
PROVIDERS: Emergency Medicine; Internal Medicine; ADMIT Internal Medicine; ATTEND Hospitalist
PROC: 0T778DZ Dilation of Left Ureter with Intraluminal Device, Via Natural or Artificial Opening Endoscopic (ICD-10-PCS; principal; 2017-12-09)
PROC: BT1DZZZ Fluoroscopy of Right Kidney, Ureter and Bladder (ICD-10-PCS; 2017-12-09)
DX: A41.51 Sepsis due to Escherichia coli [E. coli] (principal); J18.9 Pneumonia, unspecified organism; E87.8 Other disorders of electrolyte and fluid balance, not elsewhere classified; N13.6 Pyonephrosis; E87.6 Hypokalemia
CPT/HCPCS: Q9967

== ENCOUNTER 2018-01-13 13:02 | Day surgery (SDC) | payer SELFPAY ==
[~2018-01-13 13:02] MED LIST changes: +LEVAQUIN750 M1 PO
[2018-01-13] MEDS ORDERED: NORCO1 TA1 PO (20:07)
[2018-01-13] MEDS ORDERED: PYRIDIUM200 MG PO (20:07)
[2018-01-13] MEDS ORDERED: DOCUSATE CAL240 MG PO (20:07)
[2018-01-13] MEDS ORDERED: BACTRIM DS1 TAB PO (20:07)
[2018-01-13] MEDS ORDERED: TAMSULOSIN0.4 MG PO (20:07)
[2018-01-13 20:14] VITALS: BP 101/66
== END 2018-01-13 20:50 | disposition home or self-care (01) | DRG 661 ==
LOC: ORM 13:02
PROVIDERS: ATTEND Urology
PROC: 0TC18ZZ Extirpation of Matter from Left Kidney, Via Natural or Artificial Opening Endoscopic (ICD-10-PCS; principal; 2018-01-13)
PROC: 0T778DZ Dilation of Left Ureter with Intraluminal Device, Via Natural or Artificial Opening Endoscopic (ICD-10-PCS; 2018-01-13)
PROC: BT1FZZZ Fluoroscopy of Left Kidney, Ureter and Bladder (ICD-10-PCS; 2018-01-13)
DX: N20.2 Calculus of kidney with calculus of ureter (principal)
CPT/HCPCS: Q9967

== ENCOUNTER 2020-10-10 06:01 | Emergency (ER) | payer SELFPAY ==
[~2020-10-10] VITALS: Ht 154.9 cm; Wt 62.0 kg
[~2020-10-10 06:01] MED LIST changes: +BACTRIM DS1 TAB PO; +DOCUSATE CAL240 MG PO; +NORCO1 TA1 PO; +PYRIDIUM200 MG PO
[2020-10-10 06:25] VITALS: BP 109/62
== END 2020-10-10 06:30 | disposition home or self-care (01) | DRG 833 ==
LOC: ED 06:01
DX: O36.8130 Decreased fetal movements, third trimester, not applicable or unspecified (principal); Z3A.37 37 weeks gestation of pregnancy